=== PATIENT | female | born 1970 | race Caucasian/White ===

== ENCOUNTER → 2018-07-26 | Outpatient (CLI) | payer SELFPAY ==
--- NOTE | 2018-07-26 11:00 | LES_PTH ---
PATIENT: IVONNE DE ANDA [id number] AGE/SX: 47/F ROOM: RE07/26/[address]: Dr. Rush Leblanc MD : [id number] BED: DIS: 07/26/2018 SPEC #: [id number] RECD: 07/26/18 16:00 STATUS: MARCOS MILTON #: [id number] ORALIA: 07/26/18 11:[address]: Rush Leblanc DEPT: SURGICAL PATHOLOGY RECD BY: Lb Retana ENTERED: 07/29/18 08:57 SP TYPE: Lesion OTHR DR: Dr. 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 SJ:tae 07/30/18 MICROSCOPIC DESCRIPTION Slides are reviewed. GROSS DESCRIPTION Received in fixative is one container labeled with the patient's name and designated left ear neoplasm. The specimen consists of a minute shaved biopsy of probable skin measuring 0.2 x 0.1 x 0.05 cm. The specimen is totally submitted in one cassette. / CE:tae 07/29/18 TC:1 CPT: 68448
== END | disposition home or self-care (01) ==
LOC: LABSPEC 16:06
PROVIDERS: Family Provider Student in an Organized Health Care Education/Training Program; PCP Student in an Organized Health Care Education/Training Program; Referring Provider Otolaryngology; Visit Provider Otolaryngology
DX: D49.2 Neoplasm of unspecified behavior of bone, soft tissue, and skin (principal)
CPT/HCPCS: 88305